=== PATIENT | female | born 1965 ===

== ENCOUNTER 2016-09-18 20:37 | Emergency (ER) | payer MEDICARE, MEDICAID ==
[~2016-09-18 20:37] MED LIST: ALBAFORT325 ( 65 ) PO; ALDACTONE100 MG PO; ATIVAN1 M2 PO; ATIVAN2 MG PO; CEPHALEXIN500 M1 PO; CYCLOBENZAPRINE5 M1 PO; ENULOSE10 GM/151 PO; FOLIC ACID1 MG PO; GLUCOPHAGE1000 MG PO; HYDROCODON-ACE1 EAC5 PO; INCIVEK375 MG PO; KEFLEX500 M4 PO; LASIX40 M1 PO; LASIX80 M1 PO; LEVEMIR FL100 UNIT/2 SC; LEVEMIR100 U/ML SQ; LISINOPRIL-HCT1 EAC1 PO; NORCO 10-325 T1 EACH PO; NOVOLOG FL100 UNIT/1 SQ; NOVOLOG FL100 UNIT/2; OMEPRAZOLE20 M2 PO; OMEPRAZOLE20 M3 PO; OMEPRAZOLE20 M4 PO; OXYCODONE HCL20 M3 PO; OXYCONTIN20 M2 PO; OXYCONTIN40 M2 PO; RIBASPHERE200 MG PO; RIBASPHERE400 MG PO; SYNTHROID175 MC1 PO; VENTOLIN HFA18 G2 PO; VITAMIN A10000 UNIT PO; VITAMIN D35000 UNI1 PO; [UNRECOGNIZED DRUG - CODE] IJ
[2016-09-18 21:07] LABS: BASO % 0.1 % (0-2); EOS % 1.8 % (0-7); EOSINOPHIL ABSOLUTE COUNT 0.1 tho/cmm (0.0-0.7); HCT-HEMATOCRIT 40.5 % (34.0-49.0); HGB-HEMOGLOBIN 13.7 gm/dl (12.0-15.5); IMMATURE GRANULOCYTES ABSOLUTE 0.02 tho/cmm (0-0.03); IMMATURE GRANULOCYTES PERCENT 0.3 % (0-0.3); LYMPH % 44.5 % (20-45); LYMPH ABSOLUTE COUNT 3.5 tho/cmm (0.8-4.5); MCH (MEAN CORPUSCULAR HGB) 27.7 pg (28.0-32.0); MCHC MEAN CORPUSCULAR HGB CONC 33.8 % (32.0-36.0); MONO % 7.4 % (0-12); MONOCYTE ABSOLUTE COUNT 0.6 tho/cmm (0.0-1.2); NEUTROPHIL ABSOLUTE COUNT 3.7 tho/cmm (1.6-8.0); NEUTROPHIL-AUTOMATED 3.7 tho/cmm (1.6-8.0); NEUTROPHILS % 45.9 % (40-80); PLATELET COUNT 161 tho/cmm (150-450); RED BLOOD COUNT 4.94 mil/cmm (4.00-5.20); RED CELL DISTRIBUTION WIDTH 14.3 % (12.4-16.4)
[2016-09-18 21:27] LABS: ALB/GLOB RATIO 0.9 (0.8-2.0); ALBUMIN 3.8 g/dl (3.5-5.0); ALKALINE PHOSPHATASE 223 U/L (33-138); ALT/SGPT 45 U/L (12-78); ANION GAP 12 mmol/L (0-20); AST/SGOT 35 U/L (10-40); BILIRUBIN,TOTAL 0.4 mg/dl (0-1.5); BLOOD UREA NITROGEN 5 mg/dl (6-24); CALCIUM 8.8 mg/dl (8.5-10.5); CARBON DIOXIDE-VENOUS 27 mmol/L (22-32); CHLORIDE 95 mmol/l (96-110); CREATININE 0.86 mg/dl (0.50-1.10); GLUCOSE 144 mg/dL (70-110); LIPASE 97 U/L (73-393); POTASSIUM 3.3 mmol/L (3.7-5.1); SODIUM 131 mmol/L (135-145); eGFR VALUE FOR BLACK >90 mL/Min
[2016-10-17] MEDS ORDERED: LEVOFLOXACIN750 M1 PO (17:08)
[2016-10-17] MEDS ORDERED: ZANAFLEX4 M2 PO (17:14)
== END 2016-09-18 23:09 ==
LOC: EDMED 20:37
PROVIDERS: Emergency Medicine
DX: R07.89 Other chest pain (principal); E87.6 Hypokalemia; E11.9 Type 2 diabetes mellitus without complications; I10 Essential (primary) hypertension; Z86.19 Personal history of other infectious and parasitic diseases; Z79.4 Long term (current) use of insulin; Z79.890 Hormone replacement therapy; Z79.899 Other long term (current) drug therapy
CPT/HCPCS: J2405